=== PATIENT | male | born 1985 | race Two or more races ===

== ENCOUNTER 2022-02-03 15:51 | Outpatient (CLI) | payer BC | END 2022-02-03 15:59 | disposition home or self-care (01) | LOC: RAD 15:51 | PROVIDERS: ATTEND General Practice | DX: Z20.1 Contact with and (suspected) exposure to tuberculosis (principal); Z11.1 Encounter for screening for respiratory tuberculosis ==

== ENCOUNTER 2023-06-01 08:14 | Outpatient (CLI) | payer OTHER | END 2023-06-01 08:20 | disposition home or self-care (01) | LOC: RAD 08:14 | PROVIDERS: ATTEND General Practice | DX: R76.12 Nonspecific reaction to cell mediated immunity measurement of gamma interferon antigen response without active tuberculosis (principal) ==

== ENCOUNTER 2023-07-16 08:19 | Outpatient (CLI) | payer OTHER | END 2023-07-16 08:24 | disposition home or self-care (01) | LOC: MRI 08:19 | PROVIDERS: ATTEND Orthopaedic Surgery | DX: S63.522A Sprain of radiocarpal joint of left wrist, initial encounter (principal) | CPT/HCPCS: 73221 ==